=== PATIENT | female | born 1960 | race Caucasian/White ===

== ENCOUNTER → 2016-10-12 | Outpatient (CLI) | payer BC ==
--- NOTE | 2016-10-12 11:02 | DIAGNOSTIC IMAGING REPORT ---
ABDOMINAL ULTRASOUND, RIGHT UPPER QUADRANT HISTORY: AB PAIN, EPIGASTRIC. COMPARISON: None. FINDINGS: Pancreas: The pancreas demonstrates a normal echotexture. Liver: Unremarkable. Gallbladder: The gallbladder is surgically absent. CBD: 4 mm. Right kidney: No hydronephrosis. IMPRESSION: No significant abnormality identified within the right upper quadrant. Cholecystectomy. Electronically signed by: Dipesh Chanel M.D. 10/12/2016 11:00 AM Dictated Date/Time: 10/12/2016 11:00 AM
== END | disposition home or self-care (01) ==
LOC: C.ULTR 10:21
PROVIDERS: ATTEND Family Medicine
DX: R10.13 Epigastric pain (principal)

== ENCOUNTER → 2016-12-23 | Outpatient (CLI) | payer BC | END | disposition home or self-care (01) | LOC: C.CPL 12:44 | PROVIDERS: ATTEND Orthopaedic Surgery Sports Medicine | DX: M25.512 Pain in left shoulder (principal) ==

== ENCOUNTER 2022-03-09 08:29 | Observation (INO) ==
--- NOTE | 2022-02-08 10:10 | PAT Medication Instructions ---
Medication Instructions Date of Service February 08, 2022 Home Medications Medication Instructions Recorded tramadol 50 mg tablet 50 mg PO Q6H PRN pain #30 tabs 01/05/22 ibuprofen 200 mg tablet (Advil) 200 mg PO Q6H PRN Pain tramadol 50 mg tablet 50 mg PO Q6H PRN pain ascorbic acid (vitamin C) 1,000 mg tablet (Vitamin C) 1 g PO QAM cholecalciferol (vitamin D3) 125 mcg (5,000 unit) tablet (Vitamin D3) 125 mcg PO QAM naproxen sodium 220 mg tablet (Aleve) 220 mg PO BID PRN Pain ASK your surgeon for instructions ibuprofen 200 mg tablet (Advil) 200 mg PO Q6H PRN Pain naproxen sodium 220 mg tablet (Aleve) 220 mg PO BID PRN Pain DO NOT take the morning of surgery ascorbic acid (vitamin C) 1,000 mg tablet (Vitamin C) 1 g PO QAM cholecalciferol (vitamin D3) 125 mcg (5,000 unit) tablet (Vitamin D3) 125 mcg PO QAM Take morning of surgery With a small sip of water, OTHERWISE NOTHING TO EAT OR DRINK AFTER MIDNIGHT: tramadol 50 mg tablet 50 mg PO Q6H PRN pain (if needed) Take evening before surgery tramadol 50 mg tablet 50 mg PO Q6H PRN pain (if needed) Other Notes If you have any questions please call us at [phone] or [phone] or [phone] or [phone]
--- NOTE | 2022-02-15 12:02 | Anesthesiology Consultation ---
Date of Service February 15, 2022 Assessment & Plan (1) Encounter for pre-operative examination: Chart Review Chart Review: Acceptable Risk for Surgery and Patient seen in Pre Admission Testing - Pt anxious about SAB Upon review of chart- patient is an acceptable candidate for [facility] from anesthesia perspective. Pending patient is motivated, has good support and surgeon's office completes [facility] preop requirements- patient may proceed with outpatient NAM. Per PAT appt on 02/15/22, patient denies any recent travel or large group activities. Pt is NOT vaccinated for Covid. Will leave to surgeon's discretion if preop Covid testing needed. Educated on importance of using Covid precautions one week prior to surgery Teaching & Discussion Pre-Anesthesia Teaching/Discussion Notes: Instructed NPO after midnight before surgery,except medications with 15 cc of water. Medication instructions provided according to the PAT guidelines. History Surgery Operation Date: 03/09/22 07:15 Proposed Procedures p Right Anterior Total Hip Arthroplasty - Chris Lowe DO Height/Weight Height: 5 ft 10 in Weight: 88.7 kg Allergies Allergy/AdvReac Type Severity Reaction Status Date / Time nitrofurantoin Allergy shortness Verified 02/08/22 07:33 [From Macrobid] of breath theophylline AdvReac disoriented Verified 02/08/22 07:33 venlafaxine AdvReac disoriented Verified 09/28/21 10:37 Medications Home Medications Medication Instructions Recorded Confirmed Last Taken ibuprofen 200 mg tablet (Advil) 200 mg PO Q6H PRN Pain 09/28/21 02/08/22 Unknown tramadol 50 mg tablet 50 mg PO Q6H PRN pain #30 tabs 01/05/22 02/08/22 Unknown ascorbic acid (vitamin C) 1,000 mg 1 g PO QAM 02/08/22 02/08/22 Unknown tablet (Vitamin C) cholecalciferol (vitamin D3) 125 125 mcg PO QAM 02/08/22 02/08/22 Unknown mcg (5,000 unit) tablet (Vitamin D3) naproxen sodium 220 mg tablet 220 mg PO BID PRN Pain 02/08/22 02/08/22 Unknown (Aleve) Past Medical History Medical History Breast cyst Hx stereotactic breast bx- benign Chronic low back pain Compression fracture of L2 S/p fall (August 2020) Diverticulitis Hx-none for years History of COVID-2020, test PCP, not hosp; upper respiratory symptoms, loss taste/smell >resolved w/exception of altered taste and smell 11/06/21, home test, not hospital; nasal congestion, upper respiratory symptoms>resolved. Hyperlipidemia Currently borderline Intermittent palpitations ~a couple years ago, wore Holter monitor >no findings Nausea and vomiting after administration of anesthetic agent Osteopenia Exercise / Class Metabolic Activity II 4-5 Yardwork/Stairs/Walk up hill (one flight of stairs - no chest pain or SOB ) Past Family History Family History Mother Colorectal cancer Hypertension Coronary heart disease Congestive heart failure (CHF) Brother Hyperthyroidism Past Surgical History Surgical History History of cholecystectomy History of colonoscopy History of dilation and curettage History of esophagogastroduodenoscopy (EGD) History of laparoscopy History of open reduction and internal fixation (ORIF) procedure lt wrist History of tonsillectomy Hx of arthroscopy of shoulder Hx of cataract extraction rt/lt Past Anesthesia History No Hx of Anesthesia Complications (with exception to severe PONV with GA; has trouble taking deep inspiration after GA ) and No Family Hx of Anesthesia Complications (with exception to PONV ) History of PONV History of PONV (severe ) and Hx of Motion Sickness Social History Smoking Status: Former smoker Smoking cigarettes per day: 2-3 Do You Dip or Chew Tobacco: No Smoking End Date: 30 years ago Hx Alcohol Use: Yes alcohol intake frequency: holidays/special occasions only Alcohol Intake Frequency Comment: one drink at a time, rare Hx Substance Use: No substance use type: does not use Review of Systems Patient denies chest pain, shortness of breath, dyspnea on exertion, reflux, cough, wheezing, palpitations. No hx of seizures, stroke, [place], apnea/snoring. No hx of blood clots or blood transfusions Physical Exam Vital Signs VITALS BP 133/87 P 78 TEMP 98.3 SP02 97% RESP 16 Constitutional no acute distress ENMT Mouth: no TMJ clicking Thyromental Distance: > or= 3.5 Finger Breadths (3.5) Mallampati Class: II Tancred to molar Cap to top front tooth Neck neck extension not limited Respiratory normal respiratory effort; no respiratory distress Auscultation: lungs clear to auscultation bilaterally; no wheezes Cardiovascular Rate/Rhythm: regular rate and regular rhythm Heart Sounds: no murmur Vessels: no carotid bruit Musculoskeletal Spine: no pain with cervical ROM Extremities: extremities normal to inspection Psychiatric Orientation: alert Lab Results Anesthesia Preop Results Results Anesthesia Widget: WBC 6.54 K/ul (4.8-10.8) 02/15/22 Hgb 14.2 g/dl (12.0-16.0) 02/15/22 Hct 42.1 % (34.1-44.9) 02/15/22 Plt 267 K/uL (130-400) 02/15/22 Na 140 mmol/L (136-145) 02/15/22 K 3.8 mmol/L (3.5-5.1) 02/15/22 Cl 104 mmol/L (98-107) 02/15/22 CO2 29 mmol/L (21-32) 02/15/22 BUN 19 mg/dl (6-23) 02/15/22 Creat 0.76 mg/dl (0.6-1.2) 02/15/22 Glucose Level 93 mg/dl (70-99(Fasting)) 02/15/22 PT 10.6 Seconds (9.0-12.0) 02/15/22 PTT 28.1 Seconds (21.0-31.0) 02/15/22 INR 1.0 (0.9-1.1) 02/15/22 Blood Type O Positive 02/15/22 Antibody Screen NEGATIVE 02/15/22 Testing Electrocardiogram Date: 02/15/22 Findings: + NSR @ (71bpm ) Normal EKG per cardio Chest X-Ray Date: 02/15/22 Findings: + NAD FINDINGS: PA and lateral chest radiographs are obtained. No prior studies are available for comparison at the time of dictation. The cardiomediastinal silhouette is unremarkable. Emphysematous change is suspected. Nonspecific interstitial thickening is likely chronic. The lungs and pleural spaces are clear. There is no pneumothorax. The skeletal structures are osteopenic. A compression deformity is noted in the lower thoracic region. Arthritic change is seen in the shoulders. COVID-19 Risk Screen Screening Information COVID-19 Screen Date: 02/15/22 Exposure 21 Days Family/Household +COVID Last 21 Days: No Exposure 10 Days Any COVID Exposure Last 10 Days: No Symptoms Last 10 Days Experienced COVID Sx Last 10 Days: No + COVID 0-90 Days COVID + in Last 0-90 Days: No Risk Plan COVID Risk Plan: No Risk Identified Patient Education COVID Preop Screening Education Complete: Yes
[~2022-03-09 08:29] MED LIST: ACETAMINOPHEN 500 MG TAB PO SCH; BUPIVACAINE 0.5 % 5 MG/1 ML PF 10ML VIAL ONE; FAMOTIDINE 20 MG TAB PO SCH; GABAPENTIN 300 MG CAP PO SCH; LR 500ML BOLUS, THEN 15ML/HR IV SCH; LR 60ML/HR IV SCH; ORTHO JOINT MIX INFIL SCH; TRANEXAMIC ACID 1,000 MG **IV Intra-op IV SCH; TRANEXAMIC ACID 1,000 MG **IV Pre-op IV SCH; ceFAZolin 2000MG 2,000 MG/15 ML SYR IV SCH; dexAMETHasone 4 MG TAB PO SCH
--- NOTE | 2022-03-09 09:16 | History & Physical Bridge Note ---
Date of Service March 09, 2022 History & Physical Bridge Note I have examined the patient, reviewed the History & Physical and in the interval since the performance of the History & Physical I have noted the following changes of clinical significance: no changes noted
[2022-03-09] MEDS ORDERED: MIDAZOLAM HCL 1 MG/ML 2ML VIAL ONE ×2 (09:56→11:56)
[2022-03-09] MEDS ORDERED: ONDANSETRON INJ 2 MG/ML 2 ML VIAL ONE (09:56)
[2022-03-09] MEDS ORDERED: PROPOFOL IV EMULSION 10 MG/ML 20 ML VIAL IV ONE (09:56)
[2022-03-09] MEDS ORDERED: LIDOCAINE 2% MPF LOCAL 5 ML VIAL INFIL ONE (09:56)
[2022-03-09] MEDS ORDERED: DROPERIDOL 5 MG/2 ML VIAL IV PRN (10:03)
[2022-03-09] MEDS ORDERED: ePHEDrine sulfate 50 MG/ML AMP IV PRN (10:03)
[2022-03-09] MEDS ORDERED: fentaNYL citrate 100 MCG/2 ML VIAL IV PRN (10:03)
[2022-03-09] MEDS ORDERED: ATROPINE SULFATE 0.1 MG/ML 10ML SYR IV PRN (10:03)
[2022-03-09] MEDS ORDERED: HYDROmorphone INJ 2 MG/ML SYR/VIAL IV PRN (10:03)
[2022-03-09] MEDS ORDERED: ORTHO JOINT ANESTHETIC ONE (11:32)
[2022-03-09] MEDS ORDERED: FAMOTIDINE/PF 20 MG/2 ML VIAL IV ONE (11:53)
[2022-03-09] MEDS ORDERED: KETAMINE 50 MG/5 ML SYRINGE ONE (12:06)
--- NOTE | 2022-03-09 13:27 | Operative Report ---
PG Post Operative Report Pre & Post Diagnosis Operation Date: 03/09/22 10:55 Pre-Op Diagnosis: Hip Right DJD Post-Op Diagnosis: Hip Right DJD I identified the patient and participated in the time-out.: Yes Procedure Operation Date: 03/09/22 10:55 Actual Procedures p Right Anterior Total Hip Arthroplasty(Right) - Chris Lowe DO Surgeon Chris Lowe DO Float Remover None Estimated Blood Loss 250 Findings Consistent with Post-Op Diagnosis Specimens Right femoral head Description of Procedure Implants used I used a ZimmerBiomet total hip arthroplasty system with a size 7 standard offset Avenir Complete stem, a 56 mm G7 cup with a 25mm screw, an E1 polyethylene liner, a 40 mm ceramic head with a +3.5 neck. Celine arrived at the hospital for the above procedure. She was seen in the preoperative holding area and the operative extremity was identified and signed. She was given a spinal anesthetic, a preoperative antibiotic, and TXA. She was then taken back to the operating room and laid on the table in the supine position. She was given basic sedation. The operative leg was secured to a Puristst leg positioner. The hip was then prepped and draped in sterile fashion. A timeout was done and the patient and the operative extremity was properly identified. An anterior approach was used. Dissection was taken down through the fascia and the tensor muscle belly was retracted laterally and the rectus was retracted medially. The circumflex vessels were identified and ligated. The capsule was then incised and tagged for later repair. The femoral neck was then cut and the femoral head was removed. The acetabulum was exposed. Time was spent doing a complete circumferential labral release. Sequential reaming of the acetabulum up to a size 55 reamer was done. Final reamings were done under fluoroscopy to ensure appropriate version. A Biomet 56 mm G7 cup was then impacted into place. A single 25 mm screw was placed. The E1 polyethylene liner was then snapped into place. Surrounding soft tissues were then injected with 100 cc of an orthopedic pain control cocktail. The proximal femur was then exposed. Sequential broaching up to a size 7 broach was done. Off that broach a size 40 head with a +3.5 neck was trialed. The hip was reduced and fluoroscopic images showed anatomic alignment of the implants in acceptable length. The broach was removed. The final size 7 standard offset Avenir Complete stem was then impacted into place. A ceramic 40 mm head with a +3.5 neck was then impacted onto the stem and the hip was reduced. Final fluoroscopic images showed anatomic alignment of the hip. The capsule was then closed with #1 Vicryl suture. A dilute betadyne lavage was then done for 3 minutes. The joint was then irrigated with normal saline solution. The fascia was closed with #1 PDS suture. Skin was closed with 2-0 Vicryl, yulissa, and a Silverlon dressing. She was then transferred to a hospital bed and taken to the post anesthesia care unit in stable condition. She tolerated the procedure well. I attest to the content of the Intraoperative Record and any orders documented therein. Any exceptions are noted below.
--- NOTE | 2022-03-09 14:08 | Fluoroscopy Report ---
FL hip RT 1V CLINICAL HISTORY: Right anterior Total Hip Arthroplasty COMPARISON STUDY: Right hip radiographs January 05, 2022. FLUOROSCOPY TIME: 22 seconds. EXPOSURE DOSE: 2.9146 mGy FLUOROSCOPIC IMAGES: 1 FINDINGS: Fluoroscopy was provided during total right hip arthroplasty. Hardware is intact. There is an acetabular screw. There is no fracture. No unexpected radiopaque foreign bodies. IMPRESSION: Fluoroscopy provided during total right hip arthroplasty. ACT 112: Negative or not required by law. Electronically signed by: Juan Diego Cross M.D. 03/09/2022 2:05 PM
--- NOTE | 2022-03-09 14:13 | XRay Report ---
AP PELVIS, CROSSTABLE LATERAL RIGHT HIP History: Right total hip arthroplasty. Degenerative arthritis. Postop. FINDINGS: The patient is status post a right total hip arthroplasty. The hardware is intact. No fract ure or dislocation. Skin yulissa are in place. IMPRESSION: Right total hip arthroplasty. No evidence for hardware complication ACT 112: Negative or not required by law. Electronically signed by: Dipesh Chanel M.D. 03/09/2022 2:12 PM
[2022-03-09] MEDS ORDERED: METOCLOPRAMIDE HCL INJ 5 MG/ML 2 ML VIAL IV PRN (14:57)
[2022-03-09] MEDS ORDERED: ONDANSETRON INJ 2 MG/ML 2 ML VIAL IV PRN (14:57)
[2022-03-09] MEDS ORDERED: NALOXONE HCL 0.4 MG/1 ML VIAL/CARP IV PRN (14:57)
[2022-03-09] MEDS ORDERED: HYDROmorphone INJ 0.5 MG/0.5 ML SYR IV PRN (14:57)
[2022-03-09] MEDS ORDERED: oxyCODONE HCL IR 5 MG TAB (IMMEDIATE RELEASE) PO PRN (14:57)
[2022-03-09] MEDS ORDERED: bisacodyL 10 MG SUPP PR PRN (14:57)
[2022-03-09] MEDS ORDERED: MAGNESIUM HYDROXIDE SUSP 30 ML UDC PO PRN (14:57)
[2022-03-09] MEDS: SODIUM CHLORIDE 0.9% 1000ML 1,000 ML IV SCH (16:30)
--- NOTE | 2022-03-09 17:00 | Anesthesiology Progress Note ---
Date of Service March 09, 2022 Anesthesia Post Procedure Vital Signs Vital Signs: Temp Pulse Resp BP Pulse Ox O2 Del Method O2 Flow Rate 03/09/22 16:57 36.6 C 84 18 127/75 96 Room Air 03/09/22 16:32 36.6 C 81 18 107/69 96 Room Air 03/09/22 15:54 36.6 C 73 18 115/74 97 Room Air 03/09/22 15:24 36.6 C 63 18 114/72 97 Room Air 03/09/22 14:25 68 17 107/67 97 Room Air 03/09/22 14:10 36.4 C L 64 17 100/67 97 Room Air 03/09/22 14:00 68 17 99/61 L 96 Room Air 03/09/22 13:50 63 17 105/63 100 Oxymask 5 03/09/22 13:40 69 17 102/64 100 Oxymask 5 03/09/22 13:33 36.4 C L 70 18 112/71 100 Oxymask 5 03/09/22 08:57 36.8 C 85 20 141/82 H 96 Room Air Pain Intensity Right Hip: Pain Intensity: 3 Transfer of Care Handoff Completed per policy Notes Mental Status: alert / awake / arousable and participated in evaluation Patient Amnestic to Procedure: Yes Nausea / Vomiting: adequately controlled Pain: adequately controlled Airway Patency, RR, SpO2: stable & adequate BP & HR: stable & adequate Hydration State: stable & adequate Neuraxial Anesthesia: was administered and sensory block is resolving Anesthetic Complications: no major complications apparent and Pt Satisfied with anesthetic care
[2022-03-09] MEDS: KETOROLAC 30 MG/ML VIAL IV SCH ×2 (17:17→20:10)
[2022-03-09] MEDS: ceFAZolin 2000MG 2,000 MG/15 ML SYR IV SCH (20:10)
[2022-03-09] MEDS: ASPIRIN 81 MG ECTAB PO SCH (20:11)
[2022-03-09] MEDS: DOCUSATE SODIUM 100 MG CAP PO SCH (20:12)
[2022-03-09] MEDS ORDERED: SENNA 8.6 MG TAB PO SCH (21:00)
[2022-03-10] MEDS: SODIUM CHLORIDE 0.9% 1000ML 1,000 ML IV SCH (01:40)
[2022-03-10] MEDS: KETOROLAC 30 MG/ML VIAL IV SCH ×2 (03:15→09:30)
[2022-03-10] MEDS: ceFAZolin 2000MG 2,000 MG/15 ML SYR IV SCH (03:16)
--- NOTE | 2022-03-10 07:59 | Orthopedic Progress Note ---
Date of Service March 10, 2022 Assessment & Plan (1) Status post right hip replacement: Overall she is doing fairly well. She is not having much pain in the right hip. She will be seen by physical therapy today for ambulation and range of motion exercises. She is on aspirin for DVT prophylaxis. She can be discharged home later today. She will follow-up with orthopedics in 2 weeks. Carola Berger was seen and examined at bedside this morning. Overall she is doing very well. She is not having much pain in the right hip. She has been up and ambulating to the bathroom. She has no complaints.. Review of Systems All systems reviewed & are unremarkable except as noted in HPI & below. Physical Exam Physical examination of the right hip, the dressing is clean and dry. She has active dorsiflexion plantarflexion of her right ankle.. Results & Data Results & Data Laboratory Results . Diagnostic Findings Postoperative x-rays of the right hip show the prosthesis to be in anatomic alignment without any evidence of fracture, dislocation, or loosening.. PG Care Time/CCT Total # of Minutes Spent Total Time Spent with Patient: Total time spent is greater than 50% in coordination of care (as documented) at patient's floor/unit and/or counseling patient: Coding Level of Care Code 79055 Post Operative Follow-Up Diagnoses Status post right hip replacement Z96.641
[2022-03-10] MEDS ORDERED: dexAMETHasone 4 MG TAB PO SCH (08:00)
--- NOTE | 2022-03-10 08:00 | Discharge Summary ---
Date of Service March 10, 2022 Principal Diagnosis Same as "Discharge Diagnosis" noted below under Discharge Instructions. Discharge Exam Physical examination of the right hip, the dressing is clean and dry. She has active dorsiflexion plantarflexion of her right ankle.. Discharge Data Procedures Performed Operation Date: 03/09/22 10:55 Actual Procedures p Right Anterior Total Hip Arthroplasty(Right) - Chris Lowe DO Ordered Studies 03/09/22 FL hip RT 1V Routine Hospital Course (1) Status post right hip replacement: On March 09, 2022 Celine arrived at [facility] and underwent a right hip replaced without complication. She had a spinal anesthetic that was converted to a general. Postoperatively she was started on aspirin for DVT prophylaxis and transferred to the general orthopedic floors. Her hospital course was uneventful. On postop day #1, her vital signs were stable and her pain was well controlled. She was able to participate well with physical therapy doing ambulation and range of motion exercises. She was then discharged to home. She will follow with orthopedics in 2 weeks. PG Care Time/CCT Total # of Minutes Spent Total Time Spent with Patient: Total time spent is greater than 50% in coordination of care (as documented) at patient's floor/unit and/or counseling patient: Discharge Plan Discharge Items Patient Disposition: Home - Home Health Services Reason For Visit: POST SURGICAL CARE Discharge Diagnosis: Right hip replacement Activity: Per Instructions section Non-emergency contact: Surgeon Call non-emergency contact if: your wound has increased redness and your wound has increased drainage Follow-up/Referrals: José Gaines MD [Primary Care Provider] - Diet: Regular Addtl Attending Provider Instructions: Activity and Therapy Recommendations: * If you are using [facility] then therapy will be provided at your home until they feel you have accomplished all of your goals. * If you are using [facility] then Physical Therapy will be provided until they feel you are ready to start Outpatient Physical Therapy. * If you are not using home therapy then Outpatient Physical Therapy should start about 3-5 days from your day of surgery. Therapy will last about 6-10 weeks * You were shown a series of exercises in the hospital. Do these exercises three times each day including the exercises you were shown in physical therapy. * Get up and walk several times each day.~ For the first four weeks, try not to stand or walk for more than one hour at a time. If you do stand or walk for more than one hour, you will not hurt anything, but your leg will likely swell.~~ * As you feel comfortable, you may change from the walker or crutches to a cane and~then to independent walking. Medications: * Narcotic You will likely be sent home from the hospital with a prescription for the narcotic pain medication that worked best throughout your stay. * Aspirin Most patients will be required to take Aspirin 81mg twice a day for 6 weeks after surgery. This is obtained [id number] and a prescription is not necessary. * Other medications may be prescribed for specific circumstances. If you have any questions, please call the office at . * Resume previous home medications unless otherwise instructed TEDs/Elastic Stockings: The white elastic stockings help limit swelling and prevent blood clots from forming in your legs. The more you wear them, the more they work. Wear them for six weeks. Dressing Care: Leave the Silverlon dressing in place for 7 days. After 7 days you may remove the dressing. If the incision is not draining then you may leave the yulissa open to air. If there is a little bit of drainage or if the yulissa are getting stuck on your clothing then cover the incision with a dry dressing. The yulissa will be removed at your 2 week follow-up appointment. Showering: You may shower with the Silverlon dressing in place. Do not let the shower spray hit the dressing directly. Pat the Silverlon dressing dry. If the dressing becomes wet underneath, then simply remove the dressing. Keep the incision dry until you are 7 days out from the day of surgery. After 7 days you may remove the Silverlon dressing and shower with the yulissa exposed. Let soapy water run over the yulissa and pat them dry. Do not scrub or soak the incision. Things To Watch For: * Drainage from the incision site that occurs more than one week after your surgery. * Increased redness at the incision site. * Fever above 102 degrees Fahrenheit. * Unusual chest pain or shortness of breath. * Call [facility] at with any of the above problems Follow-Up Visit: Follow-up with Dr. Lowe's PA (Chris Bertrand) 2-3 weeks after your day of surgery. He will remove your yulissa and answer any questions. If you have any additional questions or concerns, Dr Lowe is usually in the office at the same time and will be available An appointment was probably scheduled when you signed-up for surgery in the office. If you have any questions call Office Instructions: More detailed instructions as well as Frequently Asked Questions were provided in a folder by our office when you signed-up for surgery. Please review these instructions when you get home. If you have any further questions or concerns, please feel free to call the office at [phone] Pending Studies at Discharge: No Stand-Alone Forms: My [facility] [place] [employer], Smoking Cessation Medications and DC Order Prescriptions: New aspirin 81 mg Tablet,Delayed Release (Dr/Ec) 81 mg PO BID 42 Days Qty: 84 0RF oxycodone-acetaminophen 5-325 mg tablet 1 tab PO Q6H PRN (Reason: pain) Qty: 30 0RF Continued tramadol 50 mg tablet 50 mg PO Q6H PRN (Reason: pain) Qty: 30 0RF ascorbic acid (vitamin C) [Vitamin C] 1,000 mg Tablet 1 g PO QAM cholecalciferol (vitamin D3) [Vitamin D3] 125 mcg (5,000 unit) Tablet 125 mcg PO QAM Discontinued ibuprofen [Advil] 200 mg tablet 200 mg PO Q6H PRN (Reason: Pain) naproxen sodium [Aleve] 220 mg Tablet 220 mg PO BID PRN (Reason: Pain) Admission Data Admit Date/Time: 03/09/22 13:30 Attending Provider: Chris Lowe Admit Provider: Chris Lowe Primary Care Provider: José Gaines
[2022-03-10] MEDS ORDERED: MULTIVITAMIN TAB PO SCH (09:00)
[2022-03-10] MEDS: DOCUSATE SODIUM 100 MG CAP PO SCH (09:27)
[2022-03-10] MEDS: ASPIRIN 81 MG ECTAB PO SCH (09:28)
== END 2022-03-10 11:57 | disposition home health service (06) ==
LOC: 3N 08:29 → ASU 08:29

== ENCOUNTER 2022-05-16 09:28 | Observation (INO) ==
--- NOTE | 2022-05-09 11:16 | Anesthesiology Consultation ---
Date of Service May 09, 2022 Assessment & Plan (1) Encounter for pre-operative examination: - COVID screening: Per assessment on 05/09: No known COVID-19 positive contacts or current COVID-19 related symptoms. Travel screen negative. At surgeon discretion if preop Covid testing being done. - S/P Right anterior NAM (03/09/22): SAB at L3-4 x1 attempts > GA/LMA#4 - Outpatient joint assessment: Patient was assessed for outpatient joint pathway prior to right NAM done at [facility] 03/2022. Per note from Rhonda Zhang PAC 03/02/22, "Pt called in on 03/02/22- after more thought- patient does not feel co mfortable doing Outpatient Joint Program and would rather stay the night. Pt has issues with severe PONV and has trouble tolerating pain medications. Surgeon's office informed.Due to lack of motivation patient is NOT an acceptable Same Joint Candidate." Chart Review Chart Review: Acceptable Risk for Surgery and Patient seen in Pre Admission Testing History Surgery Operation Date: 05/16/22 13:00 Proposed Procedures p Left Total Hip Arthroplasty Anterior - Chris Lowe, Height/Weight Height: 5 ft 10 in Weight: 87.543 kg Allergies Allergy/AdvReac Type Severity Reaction Status Date / Time nitrofurantoin Allergy shortness Verified 05/09/22 10:45 [From Macrobid] of breath theophylline AdvReac disoriented Verified 05/09/22 10:45 venlafaxine AdvReac disoriented Verified 05/09/22 10:45 Medications Home Medications Medication Instructions Recorded Confirmed Last Taken ascorbic acid (vitamin C) 1,000 mg 1 g PO QAM 02/08/22 05/09/22 Unknown tablet (Vitamin C) cholecalciferol (vitamin D3) 125 125 mcg PO QAM 02/08/22 05/09/22 Unknown mcg (5,000 unit) tablet (Vitamin D3) oxycodone-acetaminophen 5 mg-325 1 tab PO Q6H PRN pain #30 tabs 03/10/22 05/09/22 Unknown mg tablet tramadol 50 mg tablet 50 mg PO Q6H PRN pain #30 tabs 04/13/22 05/09/22 Unknown Past Medical History Medical History Breast cyst Hx stereotactic breast bx- benign Chronic low back pain Compression fracture of L2 S/p fall (August 2020) Diverticulitis Hx (none for years) History of COVID-2020- upper respiratory symptoms, loss taste/smell > resolved with exception of altered taste and smell 11/06/21 (home test)- nasal congestion, upper respiratory symptoms > resolved Hyperlipidemia Borderline Osteopenia Past Family History Family History Mother Colorectal cancer Hypertension Coronary heart disease Congestive heart failure (CHF) Brother Hyperthyroidism Past Surgical History Surgical History History of cholecystectomy History of colonoscopy History of dilation and curettage History of esophagogastroduodenoscopy (EGD) History of laparoscopy History of open reduction and internal fixation (ORIF) procedure Right wrist History of tonsillectomy Hx of arthroscopy of shoulder Hx of cataract extraction R/L Hx of total hip arthroplasty Right Nausea and vomiting after administration of anesthetic agent Social History Smoking Status: Former smoker tobacco type: cigarettes Smoking cigarettes per day: 2-3 Do You Dip or Chew Tobacco: No Smoking End Date: 30 YEARS AGO Hx Alcohol Use: Yes alcohol intake frequency: holidays/special occasions only Alcohol Intake Frequency Comment: 1 DRINK PER OCCASION Hx Substance Use: No substance use type: does not use Lab Results Anesthesia Preop Results Results Anesthesia Widget: WBC 8.56 K/ul (4.8-10.8) 05/03/22 Hgb 13.5 g/dl (12.0-16.0) 05/03/22 Hct 41.1 % (37.0-47.0) 05/03/22 Plt 288 K/uL (130-400) 05/03/22 Na 138 mmol/L (136-145) 05/03/22 K 3.6 mmol/L (3.5-5.1) 05/03/22 Cl 103 mmol/L (98-107) 05/03/22 CO2 27 mmol/L (21-32) 05/03/22 BUN 20 mg/dl (6-23) 05/03/22 Creat 0.73 mg/dl (0.6-1.2) 05/03/22 Glucose Level 139 mg/dl (70-99(Fasting)) H 05/03/22 PT 10.8 Seconds (9.0-12.0) 05/03/22 PTT 28.1 Seconds (21.0-31.0) 05/03/22 INR 1.0 (0.9-1.1) 05/03/22 Blood Type O Positive 05/03/22 Antibody Screen NEGATIVE 05/03/22 Testing Electrocardiogram Date: 02/15/22 Findings: + NSR @ (71) Chest X-Ray Date: 02/15/22 FINDINGS: PA and lateral chest radiographs are obtained. No prior studies are available for comparison at the time of dictation. The cardiomediastinal silhouette is unremarkable. Emphysematous change is suspected. Nonspecific interstitial thickening is likely chronic. The lungs and pleural spaces are clear. There is no pneumothorax. The skeletal structures are osteopenic. A compression deformity is noted in the lower thoracic region. Arthritic change is seen in the shoulders. IMPRESSION: No active disease in the chest.
[~2022-05-16 09:28] MED LIST changes: -BUPIVACAINE 0.5 % 5 MG/1 ML PF 10ML VIAL ONE; +ROPIVACAINE 0.5% 5 MG/ML 30 ML VIAL ONE
[2022-05-16] MEDS ORDERED: PROPOFOL IV EMULSION 10 MG/ML 20 ML VIAL IV ONE (09:48)
[2022-05-16] MEDS ORDERED: LIDOCAINE 2% MPF LOCAL 5 ML VIAL ONE (09:48)
[2022-05-16] MEDS ORDERED: MIDAZOLAM HCL 1 MG/ML 2ML VIAL ONE ×2 (09:48)
[2022-05-16] MEDS ORDERED: ONDANSETRON INJ 2 MG/ML 2 ML VIAL ONE (09:48)
--- NOTE | 2022-05-16 10:56 | History & Physical Bridge Note ---
Date of Service May 16, 2022 History & Physical Bridge Note I have examined the patient, reviewed the History & Physical and in the interval since the performance of the History & Physical I have noted the following changes of clinical significance: no changes noted
[2022-05-16] MEDS ORDERED: ORTHO JOINT ANESTHETIC ONE (11:56)
[2022-05-16] MEDS ORDERED: fentaNYL citrate PF 100 MCG/2 ML VIAL ONE (12:20)
[2022-05-16] MEDS ORDERED: DEXAMETHASONE SOD INJ 4 MG/ML VIAL ONE (12:41)
--- NOTE | 2022-05-16 13:09 | Operative Report ---
PG Post Operative Report Pre & Post Diagnosis Operation Date: 05/16/22 11:55 Pre-Op Diagnosis: Left Hip Osteoarthritis Post-Op Diagnosis: Left Hip Osteoarthritis I identified the patient and participated in the time-out.: Yes Procedure Operation Date: 05/16/22 11:55 Actual Procedures p Left Total Hip Arthroplasty Anterior--Uncemented(Left) - Chris Lowe DO Surgeon Chris Lowe DO Landscape Artist Chris Thurston PA-C Estimated Blood Loss 200 Findings Consistent with Post-Op Diagnosis Specimens Left femoral head Description of Procedure Implants used I used a [employer]immer[employer]omet total hip arthroplasty system with a size 6.5 standard offset Avenir Complete stem, a 54 mm G7 cup with a 25mm screw, an E1 polyethylene liner, a 40 mm ceramic head with a +7 neck. Celine arrived at the hospital for the above procedure. She was seen in the preoperative holding area and the operative extremity was identified and signed. She was given a spinal anesthetic, a preoperative antibiotic, and TXA. She was then taken back to the operating room and laid on the table in the supine position. She was given basic sedation. The operative leg was secured to a Puristst leg positioner. The hip was then prepped and draped in sterile fashion. A timeout was done and the patient and the operative extremity was properly identified. An anterior approach was used. Dissection was taken down through the fascia and the tensor muscle belly was retracted laterally and the rectus was retracted medially. The circumflex vessels were identified and ligated. The capsule was then incised and tagged for later repair. The femoral neck was then cut and the femoral head was removed. The acetabulum was exposed. Time was spent doing a complete circumferential labral release. Sequential reaming of the acetabulum up to a size 53 reamer was done. Final reamings were done under fluoroscopy to ensure appropriate version. A Biomet 54 mm G7 cup was then impacted into place. A single 25 mm screw was placed. The E1 polyethylene liner was then snapped into place. Surrounding soft tissues were then injected with 100 cc of an orthopedic pain control cocktail. The proximal femur was then exposed. Sequential broaching up to a size 6.5 broach was done. Off that broach a size 40 head with a +7 neck was trialed. The hip was reduced and fluoroscopic images showed anatomic alignment of the implants in acceptable length. The broach was removed. The final size 6.5 standard offset Avenir Complete stem was then impacted into place. A ceramic 40 mm head with a +7 neck was then impacted onto the stem and the hip was reduced. Final fluoroscopic images showed anatomic alignment of the hip. The capsule was then closed with #1 Vicryl suture. A dilute betadyne lavage was then done for 3 minutes. The joint was then irrigated with normal saline solution. The fascia was closed with #1 PDS suture. Skin was closed with 2-0 Vicryl, yulissa, and a Silverlon dressing. She was then transferred to a hospital bed and taken to the post anesthesia care unit in stable condition. She tolerated the procedure well. Chris Thurston PA-C, was present for the entire procedure. He was critical for patient positioning, prepping, draping, retraction exposure, wound closure and application of sterile dressing. I attest to the content of the Intraoperative Record and any orders documented therein. Any exceptions are noted below.
--- NOTE | 2022-05-16 13:52 | Fluoroscopy Report ---
INTRAOPERATIVE RADIOGRAPHS CLINICAL HISTORY: Left hip arthroplasty. Fluoro time: 15 seconds. Ka,r: 2.63 mGy FINDINGS: A single spot fluoroscopic image of the left hip is presented. A bipolar left hip arthropla sty is in near anatomic alignment. A single cortical lag screws is seen transfixing the acetabular cu p. There is no evidence of acute fracture on this fluoroscopic view. IMPRESSION: Intraoperative image from a left hip arthroplasty procedure as above. Electronically signed by: Jsoé Taylor M.D. 05/16/2022 1:51 PM
[2022-05-16] MEDS ORDERED: ONDANSETRON INJ 2 MG/ML 2 ML VIAL IV PRN (14:27)
[2022-05-16] MEDS ORDERED: METOCLOPRAMIDE HCL INJ 5 MG/ML 2 ML VIAL IV PRN (14:27)
[2022-05-16] MEDS ORDERED: NALOXONE HCL 0.4 MG/1 ML VIAL/CARP IV PRN (14:27)
[2022-05-16] MEDS ORDERED: SODIUM CHLORIDE 0.9% 1000ML 1,000 ML IV SCH (14:27)
[2022-05-16] MEDS ORDERED: MAGNESIUM HYDROXIDE SUSP 30 ML UDC PO PRN (14:27)
[2022-05-16] MEDS ORDERED: HYDROmorphone INJ 0.5 MG/0.5 ML SYR IV PRN (14:27)
[2022-05-16] MEDS ORDERED: oxyCODONE HCL IR 5 MG TAB (IMMEDIATE RELEASE) PO PRN (14:27)
[2022-05-16] MEDS ORDERED: bisacodyL 10 MG SUPP PR PRN (14:27)
--- NOTE | 2022-05-16 14:56 | Anesthesiology Progress Note ---
Date of Service May 16, 2022 Anesthesia Post Procedure Vital Signs Vital Signs: Temp Pulse Pulse Resp BP Pulse Ox O2 Del Method 05/16/22 14:30 36.4 C L 60 18 112/70 98 Room Air 05/16/22 13:50 65 15 107/74 100 Oxymask 05/16/22 14:10 36.3 C L 67 13 111/74 96 Room Air 05/16/22 14:00 36.3 C L 69 15 109/70 98 Room Air 05/16/22 13:40 72 14 116/73 100 Oxymask 05/16/22 13:32 36.3 C L 92 H 12 117/79 100 Oxymask 05/16/22 10:37 36.6 C 78 20 157/94 H 97 Room Air O2 Flow Rate 05/16/22 14:30 05/16/22 13:50 3 05/16/22 14:10 0 05/16/22 14:00 0 05/16/22 13:40 5 05/16/22 13:32 7 05/16/22 10:37 Transfer of Care Handoff Completed per policy Notes Mental Status: alert / awake / arousable Patient Amnestic to Procedure: Yes Nausea / Vomiting: adequately controlled Pain: adequately controlled Airway Patency, RR, SpO2: stable & adequate BP & HR: stable & adequate Hydration State: stable & adequate Anesthetic Complications: no major complications apparent
--- NOTE | 2022-05-16 15:46 | XRay Report ---
XR hip 1V LT w pelvis CLINICAL HISTORY: IN PACU - Post Surgical TECHNIQUE: 2 views of the left hip and single frontal view of the pelvis were obtained. Comparison: Comparison is made to hip and pelvis radiograph 03/09/2022 FINDINGS: Patient is status post left total hip arthroplasty with expected postsurgical changes including soft tissue swelling and subcutaneous emphysema. Right total hip arthroplasty is unremarkable. IMPRESSION: Expected postoperative appearance status post placement of total hip arthroplasty. ACT 112: Negative or not required by law. Electronically signed by: Anselmo Berrios M.D. 05/16/2022 3:45 PM
[2022-05-16] MEDS: ACETAMINOPHEN 500 MG TAB PO SCH ×2 (15:49→22:20)
[2022-05-16] MEDS: ceFAZolin 2000MG 2,000 MG/15 ML SYR IV SCH (20:43)
[2022-05-16] MEDS ORDERED: SENNA 8.6 MG TAB PO SCH (21:00)
[2022-05-16] MEDS: DOCUSATE SODIUM 100 MG CAP PO SCH (22:19)
[2022-05-16] MEDS: ASPIRIN 81 MG ECTAB PO SCH (22:19)
[2022-05-17] MEDS: ceFAZolin 2000MG 2,000 MG/15 ML SYR IV SCH (03:44)
[2022-05-17] MEDS: ACETAMINOPHEN 500 MG TAB PO SCH (05:27)
--- NOTE | 2022-05-17 05:38 | Orthopedic Progress Note ---
Date of Service May 17, 2022 Assessment & Plan (1) Status post left hip replacement: Overall she is doing very well. She is not having much pain in the left hip. She will be seen by physical therapy today for ambulation and range of motion exercises. She is on aspirin for DVT prophylaxis. She can be discharged home later today. She will follow-up with orthopedics in 2 weeks. Carola Berger was seen and examined at bedside this morning. Overall she is doing very well. She is not having much pain in the left hip. She been up and ambulating to the bathroom. She has no complaints.. Review of Systems All systems reviewed & are unremarkable except as noted in HPI & below. Physical Exam On physical examination of the left hip, the dressing is clean and dry. She has active dorsiflexion plantarflexion of her left ankle. Sensation is intact throughout.. Results & Data Results & Data Laboratory Results . Diagnostic Findings Postoperative x-rays of the left hip show the prosthesis to be in anatomic alignment without any evidence of fracture complication, or loosening. PG Care Time/CCT Total # of Minutes Spent Total Time Spent with Patient: Total time spent is greater than 50% in coordination of care (as documented) at patient's floor/unit and/or counseling patient: Coding Level of Care Code 32516 Post Operative Follow-Up Diagnoses Status post left hip replacement Z96.642
--- NOTE | 2022-05-17 05:39 | Discharge Summary ---
Date of Service May 17, 2022 Principal Diagnosis Same as "Discharge Diagnosis" noted below under Discharge Instructions. Discharge Exam On physical examination of the left hip, the dressing is clean and dry. She has active dorsiflexion plantarflexion of her left ankle. Sensation is intact throughout.. Discharge Data Procedures Performed Operation Date: 05/16/22 11:55 Actual Procedures p Left Total Hip Arthroplasty Anterior--Uncemented(Left) - Chris Lowe DO Ordered Studies 05/16/22 11:55 FL hip LT 1V Routine Hospital Course (1) Status post left hip replacement: On May 16, 2022 Celine arrived at [facility] and underwent a left hip replaced without complication. She had a spinal anesthetic. Postoperatively she was started on aspirin for DVT prophylaxis and transferred to the general orthopedic floors. Her hospital course was uneventful. On postop day #1, her vital signs were stable and her pain was well controlled. She was able to participate well with physical therapy doing ambulation and range of motion exercises. She was then discharged home. She will follow-up with orthopedics in 2 weeks. PG Care Time/CCT Total # of Minutes Spent Total Time Spent with Patient: Total time spent is greater than 50% in coordination of care (as documented) at patient's floor/unit and/or counseling patient: Discharge Plan Discharge Items Patient Disposition: Home - Home Health Services Reason For Visit: DJD Left Hip Discharge Diagnosis: Left hip replacement Activity: Per Instructions section Non-emergency contact: Surgeon Call non-emergency contact if: your wound has increased redness and your wound has increased drainage Follow-up/Referrals: José Gaines MD [Primary Care Provider] - Diet: Regular Addtl Attending Provider Instructions: Activity and Therapy Recommendations: * If you are using [facility] then therapy will be provided at your home until they feel you have accomplished all of your goals. * If you are using [facility] then Physical Therapy will be provided until they feel you are ready to start Outpatient Physical Therapy. * If you are not using home therapy then Outpatient Physical Therapy should start about 3-5 days from your day of surgery. Therapy will last about 6-10 weeks * You were shown a series of exercises in the hospital. Do these exercises three times each day including the exercises you were shown in physical therapy. * Get up and walk several times each day.~ For the first four weeks, try not to stand or walk for more than one hour at a time. If you do stand or walk for more than one hour, you will not hurt anything, but your leg will likely swell.~~ * As you feel comfortable, you may change from the walker or crutches to a cane and~then to independent walking. Medications: * Narcotic You will likely be sent home from the hospital with a prescription for the narcotic pain medication that worked best throughout your stay. * Aspirin Most patients will be required to take Aspirin 81mg twice a day for 6 weeks after surgery. This is obtained [id number] and a prescription is not necessary. * Other medications may be prescribed for specific circumstances. If you have any questions, please call the office at . * Resume previous home medications unless otherwise instructed TEDs/Elastic Stockings: The white elastic stockings help limit swelling and prevent blood clots from forming in your legs. The more you wear them, the more they work. Wear them for six weeks. Dressing Care: Leave the Silverlon dressing in place for 7 days. After 7 days you may remove the dressing. If the incision is not draining then you may leave the yulissa open to air. If there is a little bit of drainage or if the yulissa are getting stuck on your clothing then cover the incision with a dry dressing. The yulissa will be removed at your 2 week follow-up appointment. Showering: You may shower with the Silverlon dressing in place. Do not let the shower spray hit the dressing directly. Pat the Silverlon dressing dry. If the dressing becomes wet underneath, then simply remove the dressing. Keep the incision dry until you are 7 days out from the day of surgery. After 7 days you may remove the Silverlon dressing and shower with the yulissa exposed. Let soapy water run over the yulissa and pat them dry. Do not scrub or soak the incision. Things To Watch For: * Drainage from the incision site that occurs more than one week after your surgery. * Increased redness at the incision site. * Fever above 102 degrees Fahrenheit. * Unusual chest pain or shortness of breath. * Call [facility] at with any of the above problems Follow-Up Visit: Follow-up with Dr. Lowe's PA (Chris Thurston) 2-3 weeks after your day of surgery. He will remove your yulissa and answer any questions. If you have any additional questions or concerns, Dr Lowe is usually in the office at the same time and will be available An appointment was probably scheduled when you signed-up for surgery in the office. If you have any questions call Office Instructions: More detailed instructions as well as Frequently Asked Questions were provided in a folder by our office when you signed-up for surgery. Please review these instructions when you get home. If you have any further questions or concerns, please feel free to call the office at [phone] Pending Studies at Discharge: No Stand-Alone Forms: My [facility] Medications and DC Order Prescriptions: New aspirin 81 mg Tablet,Delayed Release (Dr/Ec) 81 mg PO BID 42 Days Qty: 84 0RF Continued tramadol 50 mg tablet 50 mg PO Q6H PRN (Reason: pain) Qty: 30 0RF ascorbic acid (vitamin C) [Vitamin C] 1,000 mg Tablet 1 g PO QAM cholecalciferol (vitamin D3) [Vitamin D3] 125 mcg (5,000 unit) Tablet 125 mcg PO QAM oxycodone-acetaminophen 5-325 mg tablet 1 tab PO Q6H PRN (Reason: pain) Qty: 30 0RF Admission Data Admit Date/Time: 05/16/22 13:35 Attending Provider: Chris Lowe Admit Provider: Chris Lowe Primary Care Provider: José Gaines
[2022-05-17] MEDS: DOCUSATE SODIUM 100 MG CAP PO SCH (07:32)
[2022-05-17] MEDS: ASPIRIN 81 MG ECTAB PO SCH (07:32)
[2022-05-17] MEDS ORDERED: dexAMETHasone 4 MG TAB PO SCH (08:00)
[2022-05-17] MEDS ORDERED: MULTIVITAMIN TAB PO SCH (09:00)
--- NOTE | 2022-05-19 11:12 | Communication Note ---
Date of Service: May 19, 2022 - Ade with surgeon's office contacted myself as patient had reported to [facility] RN progressive numbness and now complete incontinence. I discussed case with Dr. Melendez who advised patient needs to report to the ED for emergency evaluation. Ade advised patient was informed and is refusing the ED and requested a call. I immediately called patient at preferred number and it went to [facility]. [facility]. Pt states is experiencing urinary incontinence which has been ongoing since post-op, denies any numbness. I advised indication for emergency evaluation as advised above and she is agreeable. She states will report to [facility] ER if possible with her ride, states otherwise she is going to [facility] ER. Surgeon's office made aware.
== END 2022-05-17 10:59 | disposition home health service (06) ==
LOC: 3E 09:28 → ASU 09:28